=== PATIENT | female | born 1955 ===

== ENCOUNTER 2017-06-04 13:12 | Emergency (ER) | payer MEDICARE ==
[2017-06-04 13:57] VITALS: BP 128/59; PULSE 107; RESP 17; TEMP 98.5; O2SAT 95; BMI 34.0
--- NOTE | 2017-06-04 15:07 | ED PDOC ---
HPI: Back Time Seen by Provider: 06/04/17 14:22 Chief Complaint (Nursing): Back Pain Chief Complaint (Provider): Back Pain History Per: Patient History/Exam Limitations: no limitations Onset/Duration Of Symptoms: Days (x3 weeks) Current Symptoms Are (Timing): Still Present Additional Complaint(s): 62 year old female who presents to the emergency department with a complaint of right mid-back pain worsen with movement ongoing for 3 weeks after having flu symptoms. Denied any fever, chills, nausea, vomiting, difficulty urinating, bloody urine, incontinence, diarrhea, constipation, weakness or paresthesia. Patient was seen by PMD yesterday for similar symptoms and advised to get an x- ray of thoracic and lumbar spine. PMD: Tima Gomez MD Past Medical History Reviewed: Historical Data, Nursing Documentation, Vital Signs Vital Signs: Last Vital Signs Temp 98.5 F 06/04/17 13:57 Pulse 107 H 06/04/17 13:57 Resp 17 06/04/17 13:57 BP 128/59 L 06/04/17 13:57 Pulse Ox 95 06/04/17 13:57 - Medical History PMH: Anxiety, Bipolar Disorder, Depression, Fractures (right foot) Denies: Diabetes, Hepatitis, HIV, HTN, Chronic Kidney Disease, Seizures, Sexually Transmitted Disease - Surgical History Surgical History: Denies: No Surg Hx - Family History Family History: States: Unknown Family Hx - Social History Current smoker - smoking cessation education provided: No Ex-Smoker (has not smoked in the last 12 months): No Alcohol: None Drugs: Denies - Immunization History Hx Tetanus Toxoid Vaccination: No Hx Influenza Vaccination: No Hx Pneumococcal Vaccination: No - Home Medications Home Medications: Ambulatory Orders Medication Instructions Recorded QUEtiapine [SEROquel] 25 mg PO Q12 #8 tab 11/13/15 Zolpidem [Ambien] 10 mg PO HS #4 tab 11/13/15 Clonazepam 0.25 mg PO DAILY 06/30/16 DiphenhydrAMINE [Benadryl] 50 mg PO TID PRN #20 cap 06/30/16 Ibuprofen [Motrin] 600 mg PO TID #21 tab 06/30/16 PARoxetine [Paxil] 10 mg PO DAILY 06/30/16 Thiothixene [Navane] 10 mg PO HS 06/30/16 predniSONE [Prednisone] 20 mg PO BID #10 tab 06/30/16 Acetaminophen with Codeine 1 each PO QID #14 tablet 07/18/16 [Tylenol with Codeine #3 Tablet] Valacyclovir HCl [Valtrex] 1 gm PO TID #21 tablet 07/18/16 Acyclovir [Zovirax] 800 mg PO 5XD #35 tab 01/04/17 Clotrimazole 1% Cream [Lotrimin 1% 15 applic EXT BID #2 tube 01/04/17 CREAM] Ibuprofen [Motrin] 1 tab PO TID PRN #30 tab 01/04/17 predniSONE [Prednisone] 20 mg PO BID #10 tab 01/04/17 traMADol [Ultram] 50 mg PO Q6 PRN #20 tab 01/04/17 Cephalexin [Keflex] 500 mg PO Q6 #28 capsule 06/04/17 Cyclobenzaprine [Cyclobenzaprine 10 mg PO TID PRN #15 tab 06/04/17 HCl] - Allergies Allergies/Adverse Reactions: Allergies Allergy/AdvReac Type Severity Reaction Status Date / Time No Known Allergies Allergy Verified 06/04/17 13:55 Review of Systems ROS Statement: Except As Marked, All Systems Reviewed And Found Negative Constitutional: Negative for: Fever, Chills Gastrointestinal: Negative for: Nausea, Vomiting, Diarrhea, Constipation Genitourinary Female: Negative for: Dysuria, Incontinence, Hematuria Musculoskeletal: Positive for: Back Pain (right mid-line) Neurological: Negative for: Weakness (or paresthesia) Physical Exam - Reviewed Nursing Documentation Reviewed: Yes Vital Signs Reviewed: Yes - Physical Exam Appears: Positive for: Non-toxic, Uncomfortable, In Acute Distress (painful) Cardiovascular/Chest: Positive for: Regular Rate, Rhythm, Chest Non Tender Respiratory: Positive for: Normal Breath Sounds. Negative for: Decreased Breath Sounds, Respiratory Distress Gastrointestinal/Abdominal: Positive for: Normal Exam, Soft. Negative for: Tenderness Back: Positive for: Vertebral Tenderness (point tenderness to right-sided mid- back). Negative for: Normal Inspection Extremity: Positive for: Normal ROM (lower). Negative for: Pedal Edema ( bilateral), Calf Tenderness (bilateral), Deformity (lower) Neurologic/Psych: Positive for: Alert (x3), cribber II-XII (intact), Oriented - ECG O2 Sat by Pulse Oximetry: 95 (RA) Pulse Ox Interpretation: Normal Medical Decision Making Medical Decision Making: Initial Impression: Back pain Initial Plan: * CXR * Toradol 30mg IM * Urine culture * Xray thoracic * Xray LS * Urinalysis ____ Time: 1615 Xray LS : No significant or acute findings to account for/ related to the clinical presentation. Xray thoracic: No acute findings related to/accounting for the clinical presentation. CXR: No active disease. UA : +trace leuks, +wbc, urine cx sent. Diagnostic results discussed with the patient in great detail. On reevaluation patient reports marked improvement of her back pain. Patient is able to sit up comfortably in bed in no acute distress. Based on history, exam and diagnostic results plan will be for outpatient follow-up with PMD. Diagnosis of back pain, likely muscle spasm, and UTI, discussed the patient. Otherwise instructed to follow up with primary care physician in 1-2 days without fail. Advised to take medication as prescribed. Return to the emergency room at any time for any new or worsening symptoms. Patient states she fully agrees with and understands discharge instructions. States that she agrees with the plan and disposition. Verbalized and repeated discharge instructions and plan. I have given the patient opportunity to ask any additional questions. Scribe Attestation: Documented by Sandy Troy, acting as a scribe for Natasha Plasencia PA-C. Provider Scribe Attestation: All medical record entries made by the Scribe were at my direction and personally dictated by me. I have reviewed the chart and agree that the record accurately reflects my personal performance of the history, physical exam, medical decision making, and the department course for this patient. I have also personally directed, reviewed, and agree with the discharge instructions and disposition. Disposition - Clinical Impression Clinical Impression: Back pain, UTI (urinary tract infection) - Patient ED Disposition Is Patient to be Admitted: No Counseled Patient/Family Regarding: Studies Performed, Diagnosis, Need For Followup, Rx Given - Disposition Disposition: Routine/Home Disposition Time: 17:00 Condition: IMPROVED Additional Instructions: Thank you for letting us take care of you today. You were treated for back pain , likely muscle spasm, UTI. The emergency medical care you received today was directed at your acute symptoms. If you were prescribed any medication, please fill it and take as directed. It may take several days for your symptoms to resolve. Return to the Emergency Department if your symptoms worsen, do not improve, or if you have any other problems. Please contact your doctor in 2 days for re-evaluation and follow up. Bring any paperwork you were given at discharge with you along with any medications you are taking to your follow up visit. Our treatment cannot replace ongoing medical care by a primary care provider (PCP) outside of the emergency department. Thank you for allowing the [facility] team to be part of your care today. If you had an X-Ray: A Radiologist will review the ED reading if any change in treatment is needed we will contact you. If you had a urine culture: It will take several days for the results, if any change in treatment is needed we will contact you. Prescriptions: Cephalexin [Keflex] 500 mg PO Q6 #28 capsule Cyclobenzaprine [Cyclobenzaprine HCl] 10 mg PO TID PRN #15 tab PRN Reason: Muscle Spasm Instructions: Urinary Tract Infection in Women (ED), Muscle Spasm (ED), Back Pain (ED) Forms: [employer] (Sierra Leonean) Print Language: [place]
--- NOTE | 2017-06-04 16:16 | RAD ---
HISTORY: Pain. No history of recent/ related trauma provided COMPARISON: No prior. FINDINGS: BONES: Alignment maintained. No fracture. DISC SPACES: Mild degenerative changes primarily disc space narrowing and non marginal osteophyte formation. SOFT TISSUES: Normal. OTHER FINDINGS: None. IMPRESSION: No acute findings related to/accounting for the clinical presentation.
--- NOTE | 2017-06-04 16:17 | RAD ---
PROCEDURE: Radiographs of the Lumbar Spine. HISTORY: pain Please no prior history of trauma provided COMPARISON: No prior. FINDINGS: BONES: Gentle scoliosis without secondary degenerative change. Incidental finding(s): Partial sacralization of the last lumbar element. DISC SPACES: Unremarkable. OTHER FINDINGS: Calcified nonaneurysmal abdominal aorta. IMPRESSION: No significant or acute findings to account for/ related to the clinical presentation.
--- NOTE | 2017-06-04 16:17 | RAD ---
HISTORY: Cough. COMPARISON: No prior. TECHNIQUE: Chest PA and lateral FINDINGS: LUNGS: No active pulmonary disease. PLEURA: No significant pleural effusion identified. No pneumothorax apparent. CARDIOVASCULAR: Normal. OSSEOUS STRUCTURES: No significant abnormalities. VISUALIZED UPPER ABDOMEN: Normal. OTHER FINDINGS: None. IMPRESSION: No active disease.
[2017-06-04 16:54] LABS: SQUAMOUS EPITHIAL 3 /hpf (0-5); URINE BACTERIA RARE (<OCC); URINE BILIRUBIN NEGATIVE (NEGATIVE); URINE BLOOD NEGATIVE (NEGATIVE); URINE CLARITY SLIGHTY-CLOUDY (Clear); URINE COLOR YELLOW (YELLOW); URINE GLUCOSE (UA) NEG (Normal); URINE LEUKOCYTE ESTERASE TRACE Leu/uL (Negative); URINE NITRATE NEGATIVE (NEGATIVE); URINE PROTEIN NEGATIVE (NEGATIVE); URINE UROBILINOGEN 0.2-1.0 mg/dL (0.2-1.0)
== END 2017-06-04 17:40 | disposition home or self-care (01) ==
LOC: H.ER 13:12
DX: M54.9 Dorsalgia, unspecified (principal); N39.0 Urinary tract infection, site not specified; F31.9 Bipolar disorder, unspecified; F41.9 Anxiety disorder, unspecified
CPT/HCPCS: 71046; 72070; 72100; 81003; 87086; 96372; 99282; J1885

== ENCOUNTER 2018-05-26 14:13 | Emergency (ER) | payer MEDICARE ==
[2018-05-26 14:13] VITALS: BMI 34.0
[2018-05-26 14:27] VITALS: BP 146/86; PULSE 114; RESP 18; TEMP 98.8; O2SAT 99
--- NOTE | 2018-05-26 16:37 | ED PDOC ---
HPI: Psych/Substance Abuse Time Seen by Provider: 05/26/18 14:47 Chief Complaint (Nursing): Psychiatric Evaluation Chief Complaint (Provider): Psychiatric Evaluation History Per: Patient History/Exam Limitations: no limitations Onset/Duration Of Symptoms: Days Current Symptoms Are (Timing): Still Present Associated Symptoms: denies: Suicidal Thoughts Additional Complaint(s): 63 year old female with a past medical history of schizophrenia who is presenting to the ED for evaluation as she is unable to sleep and is complaining of anxiety. Patient states that she has not been able to fill her prescription for Navane as the pharmacy is on back order. She denies any suicidal or homicidal ideation but does report depression due to lack of sleep. Patient offers no other medical complaints at this time. PMD: Manfred Gomez Past Medical History Reviewed: Historical Data, Nursing Documentation, Vital Signs Vital Signs: Last Vital Signs Temp 98.8 F 05/26/18 14:21 Pulse 114 H 05/26/18 14:21 Resp 18 05/26/18 14:21 BP 146/86 05/26/18 14:21 Pulse Ox 99 05/26/18 14:21 - Medical History PMH: Anxiety, Bipolar Disorder, Depression, Fractures (right foot) Denies: Diabetes, Hepatitis, HIV, HTN, Chronic Kidney Disease, Seizures, Sexually Transmitted Disease - Surgical History Surgical History: - Family History Family History: States: Unknown Family Hx - Social History Current smoker - smoking cessation education provided: No Alcohol: None Drugs: Denies - Immunization History Hx Tetanus Toxoid Vaccination: No Hx Influenza Vaccination: No Hx Pneumococcal Vaccination: No - Home Medications Home Medications: Ambulatory Orders Medication Instructions Recorded QUEtiapine [SEROquel] 25 mg PO Q12 #8 tab 11/13/15 Zolpidem [Ambien] 10 mg PO HS #4 tab 11/13/15 Clonazepam 0.25 mg PO DAILY 06/30/16 DiphenhydrAMINE [Benadryl] 50 mg PO TID PRN #20 cap 06/30/16 Ibuprofen [Motrin] 600 mg PO TID #21 tab 06/30/16 PARoxetine [Paxil] 10 mg PO DAILY 06/30/16 Thiothixene [Navane] 10 mg PO HS 06/30/16 predniSONE [Prednisone] 20 mg PO BID #10 tab 06/30/16 Acetaminophen with Codeine 1 each PO QID #14 tablet 07/18/16 [Tylenol with Codeine #3 Tablet] Valacyclovir HCl [Valtrex] 1 gm PO TID #21 tablet 07/18/16 Acyclovir [Zovirax] 800 mg PO 5XD #35 tab 01/04/17 Clotrimazole 1% Cream [Lotrimin 1% 15 applic EXT BID #2 tube 01/04/17 CREAM] Ibuprofen [Motrin] 1 tab PO TID PRN #30 tab 01/04/17 predniSONE [Prednisone] 20 mg PO BID #10 tab 01/04/17 traMADol [Ultram] 50 mg PO Q6 PRN #20 tab 01/04/17 Cephalexin [Keflex] 500 mg PO Q6 #28 capsule 06/04/17 Cyclobenzaprine [Cyclobenzaprine 10 mg PO TID PRN #15 tab 06/04/17 HCl] - Allergies Allergies/Adverse Reactions: Allergies Allergy/AdvReac Type Severity Reaction Status Date / Time No Known Allergies Allergy Verified 05/16/18 20:14 Review of Systems ROS Statement: Except As Marked, All Systems Reviewed And Found Negative Psych: Positive for: Anxiety, Depression. Negative for: Suicidal ideation, Other (homicidal ideation ) Physical Exam - Reviewed Nursing Documentation Reviewed: Yes Vital Signs Reviewed: Yes - Physical Exam Appears: Positive for: Non-toxic, No Acute Distress Head Exam: Positive for: ATRAUMATIC, NORMAL INSPECTION, NORMOCEPHALIC Skin: Positive for: Normal Color, Warm, DRY Eye Exam: Positive for: EOMI, Normal appearance, PERRL ENT: Positive for: Normal ENT Inspection Neck: Positive for: Normal, Painless ROM Cardiovascular/Chest: Positive for: Regular Rate, Rhythm. Negative for: Murmur Respiratory: Positive for: Normal Breath Sounds. Negative for: Respiratory Distress Gastrointestinal/Abdominal: Positive for: Normal Exam, Soft. Negative for: Tenderness Back: Positive for: Normal Inspection Extremity: Positive for: Normal ROM. Negative for: Deformity, Swelling Neurologic/Psych: Positive for: Alert, Oriented (x3). Negative for: Motor/Sensory Deficits - ECG O2 Sat by Pulse Oximetry: 99 (RA) Pulse Ox Interpretation: Normal Medical Decision Making Medical Decision Making: Time: 17:00 Assessment: able to provide 1 tab of Navane here --will discharge for follow up with possible outpatient alternatives Scribe Attestation: Documented by Ligia Mcdonald, acting as a scribe for Harry Gibson MD. Provider Scribe Attestation: All medical record entries made by the Scribe were at my direction and personally dictated by me. I have reviewed the chart and agree that the record accurately reflects my personal performance of the history, physical exam, medical decision making, and the department course for this patient. I have also personally directed, reviewed, and agree with the discharge instructions and disposition. Disposition - Clinical Impression Clinical Impression: Anxiety - Patient ED Disposition Is Patient to be Admitted: No Counseled Patient/Family Regarding: Diagnosis, Need For Followup - Disposition Disposition: Routine/Home Disposition Time: 16:41 Condition: FAIR Instructions: Anxiety, Adult (DC) Forms: [employer] (Chinese)
== END 2018-05-26 17:17 | disposition home or self-care (01) ==
LOC: H.ER 14:13
DX: F41.9 Anxiety disorder, unspecified (principal); Z86.59 Personal history of other mental and behavioral disorders; Z00.8 Encounter for other general examination

== ENCOUNTER 2018-06-01 12:45 | Emergency (ER) | payer MEDICARE ==
[2018-06-01 12:45] VITALS: BMI 34.0
[2018-06-01 12:54] VITALS: TEMP 97.6
[2018-06-01 13:37] VITALS: BP 143/73; RESP 20; O2SAT 99
--- NOTE | 2018-06-01 13:59 | ED PDOC ---
HPI: General Adult Time Seen by Provider: 06/01/18 12:57 Chief Complaint (Nursing): Med Refill Chief Complaint (Provider): Trouble Sleeping History Per: Patient History/Exam Limitations: no limitations Onset/Duration Of Symptoms: Days (1x week) Severity: Moderate Additional Complaint(s): 63 year old female with a past medical history of psychiatric problems presents to the ED with complaints of trouble sleeping for the past 1x week. Patient reports that she recently had a medication change from Navane to risperdal and ambien by her psychiatrist. Patient reports that she was actually able to get sleep up until yesterday. Patient reports taking her medications as prescribed. Patient reports that she has an appointment with her psychiatrist tomorrow, but is concerned that she might not get sleep tonight. Patient denies having suicidal ideations, homicidal ideations, and hallucinations. PMD: None provided. Psychiatrist: Adán Valadez MD Past Medical History Reviewed: Historical Data, Nursing Documentation, Vital Signs Vital Signs: Last Vital Signs Temp 97.6 F 06/01/18 12:49 Pulse 100 H 06/01/18 13:37 Resp 20 06/01/18 13:37 BP 143/73 06/01/18 13:37 Pulse Ox 99 06/01/18 13:37 RODRICK Report Viewed: Yes - Medical History PMH: Anxiety, Bipolar Disorder, Depression, Fractures (right foot), Schizophrenia Denies: Diabetes, Hepatitis, HIV, HTN, Chronic Kidney Disease, Seizures, Sexually Transmitted Disease - Surgical History Surgical History: - Family History Family History: States: No Known Family Hx - Social History Current smoker - smoking cessation education provided: No Alcohol: None Drugs: Denies - Immunization History Hx Tetanus Toxoid Vaccination: No Hx Influenza Vaccination: No Hx Pneumococcal Vaccination: No - Home Medications Home Medications: Ambulatory Orders Medication Instructions Recorded QUEtiapine [SEROquel] 25 mg PO Q12 #8 tab 11/13/15 RX: Zolpidem [Ambien] 10 mg PO HS #4 tab 11/13/15 DiphenhydrAMINE [Benadryl] 50 mg PO TID PRN #20 cap 06/30/16 Ibuprofen [Motrin] 600 mg PO TID #21 tab 06/30/16 PARoxetine [Paxil] 10 mg PO DAILY 06/30/16 RX: Clonazepam 0.25 mg PO DAILY 06/30/16 RX: Thiothixene [Navane] 10 mg PO HS 06/30/16 predniSONE [Prednisone] 20 mg PO BID #10 tab 06/30/16 Acetaminophen with Codeine 1 each PO QID #14 tablet 07/18/16 [Tylenol with Codeine #3 Tablet] Valacyclovir HCl [Valtrex] 1 gm PO TID #21 tablet 07/18/16 Clotrimazole 1% Cream [Lotrimin 1% 15 applic EXT BID #2 tube 01/04/17 CREAM] Ibuprofen [Motrin] 1 tab PO TID PRN #30 tab 01/04/17 RX: Acyclovir [Zovirax] 800 mg PO 5XD #35 tab 01/04/17 RX: traMADol [Ultram] 50 mg PO Q6 PRN #20 tab 01/04/17 predniSONE [Prednisone] 20 mg PO BID #10 tab 01/04/17 Cephalexin [Keflex] 500 mg PO Q6 #28 capsule 06/04/17 Cyclobenzaprine [Cyclobenzaprine 10 mg PO TID PRN #15 tab 06/04/17 HCl] RX: hydrOXYzine HCl [Atarax] 50 mg PO HS PRN #2 tab 06/01/18 - Allergies Allergies/Adverse Reactions: Allergies Allergy/AdvReac Type Severity Reaction Status Date / Time No Known Allergies Allergy Verified 06/01/18 12:54 Review of Systems ROS Statement: Except As Marked, All Systems Reviewed And Found Negative Neurological: Positive for: Other (trouble sleeping) Psych: Negative for: Suicidal ideation, Other (homicidal ideations, hallucinations) Physical Exam - Reviewed Nursing Documentation Reviewed: Yes Vital Signs Reviewed: Yes - Physical Exam Appears: Positive for: Well, Non-toxic, No Acute Distress Head Exam: Positive for: ATRAUMATIC, NORMOCEPHALIC Skin: Positive for: Normal Color, Warm, Dry Eye Exam: Positive for: Normal appearance, EOMI, PERRL Cardiovascular/Chest: Positive for: Regular Rate, Rhythm Respiratory: Positive for: Normal Breath Sounds Gastrointestinal/Abdominal: Positive for: Normal Exam, Soft. Negative for: Tenderness Neurologic/Psych: Positive for: Alert, Oriented (3x), Mood/Affect (calm and cooperative) - ECG ECG: Positive for: Interpreted By Me ECG Rhythm: Positive for: Sinus Tachycardia. Negative for: ST/T Changes Rate: 103 O2 Sat by Pulse Oximetry: 99 (RA) Pulse Ox Interpretation: Normal - Progress ED Course And Treament: Advised patient to follow up with without fail. Medical Decision Making Medical Decision Makin:57 Initial impression: 63 year old female with trouble sleeping Scribe Attestation: Documented byPamella Vargas, acting as a scribe for Miguel Isidro Provider Scribe Attestation: All medical record entries made by the Scribe were at my direction and personally dictated by me. I have reviewed the chart and agree that the record accurately reflects my personal performance of the history, physical exam, medical decision making, and the department course for this patient. I have also personally directed, reviewed, and agree with the discharge instructions and disposition. Disposition - Clinical Impression Clinical Impression: Insomnia - Patient ED Disposition Is Patient to be Admitted: No - Disposition Referrals: Lillian Mathew [Outside] Disposition Time: 23:30 Condition: STABLE Additional Instructions: FOLLOW UP WITH DR. VALADEZ TOMORROW FOR FURTHER EVALUATION RETURN TO ED IMMEDIATELY IF SYMPTOMS WORSEN STELLA HEARD, thank you for letting us take care of you today. Your provider was Sulaiman Mai MD and you were treated for PSYCH EVAL. The emergency medical care you received today was directed at your acute symptoms. If you were prescribed any medication, please fill it and take as directed. It may take s everal days for your symptoms to resolve. Return to the Emergency Department if your symptoms worsen, do not improve, or if you have any other problems. Please contact your doctor or call one of the physicians/clinics you have been referred to that are listed on the Patient Visit Information form that is included in your discharge packet. Bring any paperwork you were given at discharge with you along with any medications you are taking to your follow up visit. Our treatment cannot replace ongoing medical care by a primary care provider outside of the emergency department. Thank you for allowing the [facility] team to be part of your care today. If you had an X-Ray or CT scan: A Radiologist will review the ED reading if any change in treatment is needed we will contact you. If you had a blood, urine, or wound culture: It will take several days for the results, if any change in treatment is needed we will contact you. If you had an STI test: It will take 48 hours for the results. Please call after 1 week if you have not heard back. Prescriptions: RX: hydrOXYzine HCl [Atarax] 50 mg PO HS PRN #2 tab PRN Reason: Insomnia Instructions: Insomnia (DC), Tips for Getting Better Sleep Forms: [employer] (Danish) Print Language: HONDURAN
[2018-06-01 23:30] VITALS: PULSE 103
--- NOTE | 2018-06-01 23:53 | CARD ---
APPROVED REPORT Date of service: 06/01/2018 EKG Measurement Heart [id number] <Conclusion> Sinus tachycardia Otherwise normal ECG
== END 2018-06-01 15:36 | disposition home or self-care (01) ==
LOC: H.ER 12:45
DX: G47.00 Insomnia, unspecified (principal); Z76.0 Encounter for issue of repeat prescription; Z86.59 Personal history of other mental and behavioral disorders